=== PATIENT | female | born 2000 | race Two or more races ===

== ENCOUNTER 2021-08-28 13:10 | Emergency (ER) | payer MEDICAID, OTHER ==
[~2021-08-28] VITALS: Ht 152.4 cm; Wt 81.6 kg
[2021-08-28 13:56] VITALS: BP 143/83
[2021-08-28] MEDS ORDERED: cefTRIAXone SOD 1,000 MG VL IM ONE (15:00)
[2021-08-28] MEDS ORDERED: ACETAMINOPHEN 500 MG TAB PO ONE (15:00)
[2021-08-28] MEDS ORDERED: AZIT500T66 PO (15:17)
[2021-08-28] MEDS ORDERED: IBUP600T27 PO (15:17)
== END 2021-08-28 15:41 | disposition home or self-care (01) ==
LOC: ER 13:10
DX: J02.9 Acute pharyngitis, unspecified (principal); Z91.018 Allergy to other foods
CPT/HCPCS: 81002; 81025; 96372; 99283; J0696

== ENCOUNTER 2021-09-24 17:34 | Emergency (ER) | payer MEDICAID ==
[~2021-09-24] VITALS: Ht 152.4 cm; Wt 85.0 kg
[~2021-09-24 17:34] MED LIST: AZIT500T66 PO; IBUP600T27 PO
[2021-09-24 18:02] VITALS: BP 108/66
== END 2021-09-24 21:02 | disposition left against medical advice (07) ==
LOC: ER 17:34
DX: R22.43 Localized swelling, mass and lump, lower limb, bilateral (principal); Z53.21 Procedure and treatment not carried out due to patient leaving prior to being seen by health care provider

== ENCOUNTER 2021-09-25 17:38 | Emergency (ER) | payer MEDICAID ==
[~2021-09-25] VITALS: Ht 152.4 cm; Wt 81.8 kg
[2021-09-25 18:55] VITALS: BP 119/71
[2021-09-25 20:41] LABS: Basophils # (auto) 0 10 ^3/uL (0-0.2); Basophils % (auto) 0.1 % (0.0-2.0); Eosinophils # (auto) 0.1 10 ^3/uL (0-0.8); Eosinophils % (auto) 1.3 % (0.0-7.0); Hematocrit 43.2 % (36.0-46.0); Hemoglobin 14.4 g/dL (12.2-16.2); Lymphocytes # (auto) 2.9 10 ^3/uL (0.4-5.4); Lymphocytes % (auto) 34.7 % (10.0-50.0); Mean Corpuscular Hemoglobin 30.2 pg (28.0-32.0); Mean Corpuscular Hgb Conc. 33.3 g/dL (32.0-36.0); Mean Corpuscular Volume 90.7 fL (80.0-100.0); Monocytes # (auto) 0.5 10 ^3/uL (0-1.3); Monocytes % (auto) 5.8 % (0.0-12.0); Neutrophils # (auto) 4.9 10 ^3/uL (1.6-8.6); Neutrophils % (auto) 58.1 % (37.0-80.0); Red Blood Cells 4.77 10^6/uL (4.0-5.20); Red Cell Distribution Width 13.3 % (11.8-14.3); White Blood Cell 8.5 10^3/uL (4.4-10.8)
[2021-09-25 20:59] LABS: Albumin 3.9 g/dL (3.4-5.0); Calcium 8.8 mg/dL (8.5-10.1); Magnesium 2.3 mg/dL (1.6-2.6)
[2021-09-25 21:02] LABS: Bilirubin, Total 0.2 mg/dL (0.2-1.0); Total Protein 7.6 g/dL (6.4-8.2)
== END 2021-09-26 01:24 | disposition home or self-care (01) ==
LOC: ER 17:38
DX: M79.662 Pain in left lower leg (principal); M79.661 Pain in right lower leg; M79.10 Myalgia, unspecified site; Z88.8 Allergy status to other drugs, medicaments and biological substances
CPT/HCPCS: 36415; 80053; 82550; 83735; 85025; 93970